=== PATIENT | male | born 1980 | race African-American/Black ===

== ENCOUNTER 2016-12-12 17:12 | Emergency (ER) | payer MEDICAID ==
[~2016-12-12] VITALS: Ht 170.2 cm; Wt 65.0 kg
[2016-12-12] MEDS ORDERED: KETOROLAC 60MG/2ML VIAL IM STA (21:20)
[2016-12-12] MEDS ORDERED: LIDOCAINE HCL 1% 20ML VIAL (Pyxis) INJ MC ONE (21:30)
[2016-12-12] MEDS ORDERED: BACITRACIN ZINC OINT UDPKT TOP ONE (21:30)
[2016-12-12 23:00] VITALS: BP 138/85
== END 2016-12-13 00:28 | disposition home or self-care (01) ==
LOC: ER 20:46
PROC: 0H98XZZ Drainage of Buttock Skin, External Approach (ICD-10-PCS; principal; 2016-12-12)
DX: L02.31 Cutaneous abscess of buttock (principal); F12.10 Cannabis abuse, uncomplicated; Z87.891 Personal history of nicotine dependence
CPT/HCPCS: 10060; 96372; 99283; J1885; J3490; X7700; Z7610

== ENCOUNTER 2022-10-15 01:26 | Emergency (ER) | payer MEDICAID, OTHER ==
[~2022-10-15] VITALS: Ht 172.7 cm; Wt 65.0 kg
[2022-10-15 01:30] VITALS: BP 149/89; PULSE 100; RESP 14; TEMP 98.5; O2SAT 100
[2022-10-15] MEDS ORDERED: CEFTRIAXONE SODIUM 1 G/VIAL IM ONE (05:30)
[2022-10-15] MEDS ORDERED: LIDOCAINE HCL 1% 20ML VIAL (Pyxis) INJ INFIL ONE (05:30)
[2022-10-15] MEDS ORDERED: BACITRACIN ZINC OINT UDPKT TOP ONE (05:30)
[2022-10-15] MEDS ORDERED: AMOX1TAB16 PO ×3 (05:54→06:20)
[2022-10-15] MEDS ORDERED: SULF1TAB48 MT ×3 (05:54→06:20)
[2022-10-15] MEDS ORDERED: NAPR-681 PO ×3 (05:54→06:20)
== END 2022-10-15 06:24 | disposition home or self-care (01) ==
LOC: ER 01:46
DX: L02.214 Cutaneous abscess of groin (principal); D17.9 Benign lipomatous neoplasm, unspecified; L72.9 Follicular cyst of the skin and subcutaneous tissue, unspecified; F12.10 Cannabis abuse, uncomplicated
CPT/HCPCS: 96372; 99283; J0696; J3490; Z7610 ×3

== ENCOUNTER 2022-11-09 15:33 | Emergency (ER) | payer OTHER ==
[~2022-11-09] VITALS: Ht 170.2 cm; Wt 64.0 kg
[~2022-11-09 15:33] MED LIST: AMOX1TAB16 PO; NAPR-681 PO; SULF1TAB48 MT
[2022-11-09 15:50] VITALS: O2SAT 99
[2022-11-09] MEDS ORDERED: CEPH500C2 MT (18:01)
[2022-11-09] MEDS ORDERED: SULF1TAB48 MT (18:01)
[2022-11-09 18:30] VITALS: BP 122/70; PULSE 88; RESP 18; TEMP 98.7
== END 2022-11-09 18:32 | disposition home or self-care (01) ==
LOC: ER 15:33
DX: L02.214 Cutaneous abscess of groin (principal); F12.10 Cannabis abuse, uncomplicated; Z88.5 Allergy status to narcotic agent
CPT/HCPCS: 99283; Z7610 ×4; 99281

== ENCOUNTER 2022-11-11 04:45 | Emergency (ER) | payer OTHER ==
[~2022-11-11] VITALS: Ht 170.2 cm; Wt 60.5 kg
[~2022-11-11 04:45] MED LIST changes: +CEPH500C2 MT
[2022-11-11 04:56] VITALS: O2SAT 98
[2022-11-11 07:30] VITALS: BP 148/87; TEMP 98.1
[2022-11-11] MEDS ORDERED: FENTANYL CITRATE/PF 50MCG/ML 2ML VIAL IV ONE (11:00)
[2022-11-11] MEDS ORDERED: LIDOCAINE HCL 1% 20ML VIAL (Pyxis) INJ INFIL ONE (11:00)
[2022-11-11 11:47] VITALS: PULSE 90; RESP 24
== END 2022-11-11 13:13 | disposition home or self-care (01) ==
LOC: ER 04:45
DX: L02.415 Cutaneous abscess of right lower limb (principal); I49.9 Cardiac arrhythmia, unspecified
CPT/HCPCS: 99283; 96374; 10060; 93005; J3010; J3490

== ENCOUNTER 2022-11-13 10:32 | Emergency (ER) | payer OTHER ==
[~2022-11-13] VITALS: Ht 170.2 cm; Wt 64.4 kg
[2022-11-13 10:43] VITALS: BP 103/69; PULSE 107; RESP 16; TEMP 98.5; O2SAT 100
== END 2022-11-13 12:45 | disposition home or self-care (01) ==
LOC: ER 10:32
DX: Z48.02 Encounter for removal of sutures (principal); F12.10 Cannabis abuse, uncomplicated; Z79.899 Other long term (current) drug therapy
CPT/HCPCS: 99281

== ENCOUNTER 2024-12-24 20:32 | Emergency (ER) | payer OTHER ==
[~2024-12-24] VITALS: Ht 170.2 cm; Wt 70.0 kg
[~2024-12-24 20:32] MED LIST changes: +AMOX1TAB16 MT; -AMOX1TAB16 PO; -CEPH500C2 MT; -NAPR-681 PO; -SULF1TAB48 MT
[2024-12-24 20:52] VITALS: O2SAT 100
[2024-12-25] MEDS: KETOROLAC 15MG/ML VIAL IM ONE (01:18)
[2024-12-25] MEDS ORDERED: CEPH500C2 MT (01:19)
[2024-12-25] MEDS ORDERED: SULF1TAB48 MT (01:19)
[2024-12-25 01:56] VITALS: BP 132/87; PULSE 70; RESP 15; TEMP 37.2; O2SAT 100
== END 2024-12-25 02:00 | disposition home or self-care (01) ==
LOC: ER 20:32
DX: L02.91 Cutaneous abscess, unspecified (principal); F12.90 Cannabis use, unspecified, uncomplicated; Z79.899 Other long term (current) drug therapy; Z88.5 Allergy status to narcotic agent
CPT/HCPCS: 99283; 96372; J1885; Z7610